=== PATIENT | male | born 1995 | race Caucasian/White ===

== ENCOUNTER 2020-01-31 21:04 | Emergency (ER) | payer MEDICAID, OTHER ==
[~2020-01-31] VITALS: Ht 182.9 cm; Wt 65.3 kg
[2020-01-31 21:19] VITALS: BP 116/70
[2020-01-31] MEDS ORDERED: IBUPROFEN 400 MG TABLET PO ONE (22:00)
[2020-01-31] MEDS ORDERED: IBUPROFEN 400 MG TABLET ONE (22:02)
--- NOTE | 2020-01-31 22:15 | NUR ---
Patient discharged to home in stable condition. Written and verbal after care instructions given. Patient verbalizes understanding of instruction. Pt ambulatory with a steady gait
== END 2020-01-31 22:15 | disposition home or self-care (01) ==
LOC: ER 21:12
DX: M79.672 Pain in left foot (principal)
CPT/HCPCS: 73610-TC

== ENCOUNTER 2020-05-19 17:09 | Emergency (ER) | payer OTHER ==
[~2020-05-19] VITALS: Ht 180.3 cm; Wt 68.0 kg
[2020-05-19 17:15] VITALS: BP 128/79
== END 2020-05-19 18:14 | disposition home or self-care (01) ==
LOC: ER 17:12
DX: S92.512A Displaced fracture of proximal phalanx of left lesser toe(s), initial encounter for closed fracture (principal); W22.8XXA Striking against or struck by other objects, initial encounter; Y93.01 Activity, walking, marching and hiking; Y92.89 Other specified places as the place of occurrence of the external cause; Y99.8 Other external cause status
CPT/HCPCS: 73660-TC